=== PATIENT | male | born 1995 | race Caucasian/White ===

== ENCOUNTER 2021-04-01 13:38 | Emergency (ER) | payer OTHER, SELFPAY ==
[2021-04-01 15:12] VITALS: BP 115/79; PULSE 95; RESP 18; TEMP 37.1; O2SAT 100
--- NOTE | 2021-04-01 17:10 | ED.GENADULT ---
HPI - General Adult General Chief complaint: Upper Respiratory Infection Stated complaint: Cough Time Seen by Provider: 04/01/21 16:44 Source: patient Mode of arrival: ambulatory Limitations: no limitations History of Present Illness HPI narrative: Patient is here for treatment of his cough which started this morning. He states that it causes severe burning in his chest and his mildly productive. He is a smoker. He denies any fever or shortness of breath, or wheezing. He has a remote history of asthma as a child that was treated with nebulizer treatments. Onset (ago): hour(s) Associated symptoms: denies other symptoms Related Data Allergies Allergy/AdvReac Type Severity Reaction Status Date / Time No Known Allergies Allergy Verified 04/01/21 16:39 Review of Systems Review of Systems: All systems reviewed & are unremarkable except as noted in HPI and below [facility] Social History Social History Smoking status: Current every day smoker Gender identity (if verbalized by the patient): Male Exam Const: General: no acute distress and alert Orientation/consciousness: patient oriented x3 HENMT: Head: normal to inspection Eyes: Conjunctivae: conjunctivae normal Pupils: Equal, round and reactive pupils present Resp: Effort & Inspection: normal respiratory effort Auscultation: clear to auscultation bilaterally and diminished lung sounds Cardio: Rate: regular rate Rhythm: regular rhythm Skin: General skin exam: normal color Extrem: General: normal to inspection Course Course Emergency Course: Patient feels better after having his breathing treatment will order MDI for home Vital Signs Vital signs: Vital Signs Temperature 37.1 C 04/01/21 15:12 Pulse Rate 95 04/01/21 15:12 Respiratory Rate 18 04/01/21 15:12 Blood Pressure 115/79 04/01/21 15:12 Pulse Oximetry 100 04/01/21 15:12 Temperature 37.1 C 04/01/21 15:12 Pulse Rate 84 04/01/21 17:52 Respiratory Rate 16 04/01/21 17:52 Blood Pressure 115/79 04/01/21 15:12 Pulse Oximetry 100 04/01/21 15:12 Medical Decision Making Vital Signs Vital Signs: Vital Signs Temperature 37.1 C 04/01/21 15:12 Pulse Rate 95 04/01/21 15:12 Respiratory Rate 18 04/01/21 15:12 Blood Pressure 115/79 04/01/21 15:12 Pulse Oximetry 100 04/01/21 15:12 Temperature 37.1 C 04/01/21 15:12 Pulse Rate 84 04/01/21 17:52 Respiratory Rate 16 04/01/21 17:52 Blood Pressure 115/79 04/01/21 15:12 Pulse Oximetry 100 04/01/21 15:12 Discharge Plan Discharge Clinical Impression: Upper respiratory infection Qualifiers: URI type: unspecified viral URI Qualified Code(s): J06.9 - Acute upper respiratory infection, unspecified Patient Disposition: Home, Self-Care Condition: Improved Instructions: Antibiotic Form, Cold Symptoms (ED) Additional Instructions: Use your metered-dose inhaler as instructed for shortness of breath you may be due 2 to 4 puffs as needed. They have more importantly is always use your MDI. Follow-up with your primary care physician as needed. Strongly recommended that she stop smoking. Prescriptions: New albuterol sulfate 90 mcg/actuation HFA aerosol inhaler 2 - 4 puff inhalation QID PRN (Reason: shortness of breath or wheezing) Qty: 8.5 RF: 0 Follow-up/Referrals: Maty Puri DO [Primary Care Provider] - Time of Disposition: 18:54
[2021-04-01] MEDS: ALBUTEROL SULFATE NEB 2.5 MG/0.5 ML INH INHALATION (17:42)
[2021-04-01 17:43] VITALS: PULSE 80; RESP 12
[2021-04-01 17:52] VITALS: PULSE 84; RESP 16
--- NOTE | 2021-04-01 18:14 | PC.NURSE ---
pt states I feel better and can breathe easier now after UDT.
--- NOTE | 2021-04-01 18:56 | ED.GENADULT ---
HPI - General Adult General Chief complaint: Upper Respiratory Infection Stated complaint: Cough Time Seen by Provider: 04/01/21 16:44 Source: patient Mode of arrival: ambulatory Limitations: no limitations History of Present Illness Associated symptoms: denies other symptoms Related Data Allergies Allergy/AdvReac Type Severity Reaction Status Date / Time No Known Allergies Allergy Verified 04/01/21 16:39 [facility] Social History Social History Smoking status: Current every day smoker Gender identity (if verbalized by the patient): Male Course Vital Signs Vital signs: Vital Signs Temperature 37.1 C 04/01/21 15:12 Pulse Rate 95 04/01/21 15:12 Respiratory Rate 18 04/01/21 15:12 Blood Pressure 115/79 04/01/21 15:12 Pulse Oximetry 100 04/01/21 15:12 Temperature 37.1 C 04/01/21 15:12 Pulse Rate 84 04/01/21 17:52 Respiratory Rate 16 04/01/21 17:52 Blood Pressure 115/79 04/01/21 15:12 Pulse Oximetry 100 04/01/21 15:12 Medical Decision Making Vital Signs Vital Signs: Vital Signs Temperature 37.1 C 04/01/21 15:12 Pulse Rate 95 04/01/21 15:12 Respiratory Rate 18 04/01/21 15:12 Blood Pressure 115/79 04/01/21 15:12 Pulse Oximetry 100 04/01/21 15:12 Temperature 37.1 C 04/01/21 15:12 Pulse Rate 84 04/01/21 17:52 Respiratory Rate 16 04/01/21 17:52 Blood Pressure 115/79 04/01/21 15:12 Pulse Oximetry 100 04/01/21 15:12 Discharge Plan Discharge Clinical Impression: Upper respiratory infection Qualifiers: URI type: unspecified viral URI Qualified Code(s): J06.9 - Acute upper respiratory infection, unspecified Patient Disposition: Home, Self-Care Condition: Improved Instructions: Antibiotic Form, Cold Symptoms (ED) Additional Instructions: Use your metered-dose inhaler as instructed for shortness of breath you may be due 2 to 4 puffs as needed. They have more importantly is always use your MDI. Follow-up with your primary care physician as needed. Strongly recommended that she stop smoking. Prescriptions: New albuterol sulfate 90 mcg/actuation HFA aerosol inhaler 2 - 4 puff inhalation QID PRN (Reason: shortness of breath or wheezing) Qty: 8.5 RF: 0 Follow-up/Referrals: Maty Puri DO [Primary Care Provider] - Time of Disposition: 18:54
== END 2021-04-01 19:23 | disposition home or self-care (01) ==
PROVIDERS: Emergency Provider Emergency Medicine; PCP Family Medicine
DX: J06.9 Acute upper respiratory infection, unspecified (principal); F17.200 Nicotine dependence, unspecified, uncomplicated
CPT/HCPCS: 94640; 99283